=== PATIENT | female | born 1965 | race African-American/Black ===

== ENCOUNTER 2017-06-12 12:35 | Emergency (ER) | payer MEDICAID, OTHER ==
[~2017-06-12] VITALS: Ht 162.6 cm; Wt 128.0 kg
[~2017-06-12 12:35] MED LIST: BENA40TA3; HYDR12.518; METH5TAB68
[2017-06-12 17:10] LABS: CLARITY URINE CLEAR (CLEAR); COLOR URINE YELLOW (YELLOW); GLUCOSE URINE NEGATIVE (NEGATIVE); KETONES URINE NEGATIVE (NEGATIVE); LEUKOCYTE ESTERASE URINE TRACE (NEGATIVE); NITRITE URINE NEGATIVE (NEGATIVE); OCCULT BLOOD URINE NEGATIVE (NEGATIVE); PH URINE 7.5 (4.5-8.0); PROTEIN URINE NEGATIVE (NEGATIVE); SPECIFIC GRAVITY URINE 1.019 (1.005-1.030)
[2017-06-12] MEDS ORDERED: KETOROLAC 60MG/2ML VIAL IM ONE (17:30)
[2017-06-12 17:49] LABS: BASOPHILS % 0.7 % (0.0-2.0); EOSINOPHILS % 3.3 % (0.0-5.0); HEMATOCRIT. 37.7 % (36.0-48.0); LYMPHOCYTES % 45.3 % (20.0-50.0); MEAN CORPUSCULAR HEMOGLOBIN 25.5 pg (28.0-32.0); MEAN CORPUSCULAR VOLUME 79.9 fL (81.0-99.0); MEAN PLATELET VOLUME 10.5 fl (7.4-10.4); MONOCYTES % 10.9 % (2.0-8.0); NEUTROPHILS % 39.8 % (40.0-76.0); PLATELET 164 x1000/uL (130-400); RED BLOOD CELL COUNT 4.72 mill/uL (4.2-5.4); RED CELL DISTRIBUTION WIDTH 16.1 % (11.6-14.6)
[2017-06-12 21:05] VITALS: BP 148/87
== END 2017-06-12 21:09 | disposition home or self-care (01) ==
LOC: ER 16:01
DX: D25.9 Leiomyoma of uterus, unspecified (principal); R10.2 Pelvic and perineal pain; I10 Essential (primary) hypertension; Z90.710 Acquired absence of both cervix and uterus
CPT/HCPCS: 36415; 76830; 76856; 81001; 81025; 85025; 96372; 99285; J1885; Z7610

== ENCOUNTER 2018-11-24 20:31 | Inpatient (IN) | payer OTHER ==
[~2018-11-24] VITALS: Ht 162.6 cm; Wt 128.8 kg
[~2018-11-24 20:31] MED LIST changes: -BENA40TA3; +BENA40TA9
[2018-11-25] MEDS ORDERED: PREDNISONE 20MG TABLET PO STA (02:07)
[2018-11-25] MEDS ORDERED: ALBUTEROL (0.083%) 2.5MG/3ML NEB HHN STA ×2 (02:07→04:23)
[2018-11-25] MEDS ORDERED: IPRATROPIUM BROMIDE (0.02%) 0.5MG/2.5ML NEB HHN STA ×2 (02:07→04:23)
[2018-11-25 02:58] LABS: CHLORIDE 109 mEq/L (98-107)
[2018-11-25 03:18] LABS: BASOPHILS % 0.5 % (0.0-2.0); HEMATOCRIT. 40.1 % (36.0-48.0); HEMOGLOBIN. 12.6 g/dL (12.0-16.0); LYMPHOCYTES % 35.9 % (20.0-50.0); MEAN CORPUSCULAR HEMOGLOBIN 25.6 pg (28.0-32.0); MEAN CORPUSCULAR VOLUME 81.5 fL (81.0-99.0); MEAN PLATELET VOLUME 10.9 fl (7.4-10.4); MONOCYTES % 12.7 % (2.0-8.0); NEUTROPHILS % 38.9 % (40.0-76.0); PLATELET 172 x1000/uL (130-400); RED BLOOD CELL COUNT 4.92 mill/uL (4.2-5.4); RED CELL DISTRIBUTION WIDTH 15.6 % (11.6-14.6)
[2018-11-25] MEDS: HYDROCODONE/ACETAMINOPHEN 5/325MG TABLET PO PRN ×2 (15:23→23:26)
[2018-11-25] MEDS ORDERED: IOHEXOL-350 100 ML BOTTLE ONE (17:17)
[2018-11-25 21:30] VITALS: BP 177/88
[2018-11-25 22:10] VITALS: BP 177/88
[2018-11-25] MEDS: LOSARTAN POTASSIUM 50 MG TABLET PO SCH (23:27)
[2018-11-26] VITALS: BP 157/90
[2018-11-26 04:00] VITALS: BP 154/79
[2018-11-26] MEDS: HYDROCODONE/ACETAMINOPHEN 5/325MG TABLET PO PRN ×2 (06:17→17:14)
[2018-11-26] MEDS ORDERED: PANTOPRAZOLE 40MG DR TABLET PO SCH (07:40)
[2018-11-26 08:00] VITALS: BP 150/78
[2018-11-26] MEDS: LOSARTAN POTASSIUM 50 MG TABLET PO SCH (08:32)
[2018-11-26 12:00] VITALS: BP 165/82
[2018-11-26 12:33] LABS: HEMOGLOBIN 12.6 g/dL (12.0-16.0); MEAN CORPUSCULAR HEMOGLOBIN 25.5 pg (28.0-32.0); MEAN CORPUSCULAR VOLUME 80.8 fL (81.0-99.0); PLATELET 176 x1000/uL (130-400); RED BLOOD CELL COUNT 4.94 mill/uL (4.2-5.4); RED CELL DISTRIBUTION WIDTH 15.6 % (11.6-14.6)
[2018-11-26 12:35] LABS: BG BASE EXCESS 1.2 mmol/L (-2.0-2.0); BG CARBOXYHEMOGLOBIN 0.7 % (0.5-1.5); BG DEOXYHEMOGLOBIN 7.2 % (0.0-5.0); BG FRACTION INSPIRED OXYGEN 21; BG HCO3 ACT 25.6 mmol/L (22.0-26.0); BG METHEMOGLOBIN 0.3 % (0.0-1.5); BG OXYGEN SATURATION 92.7 % (92.0-98.5); BG OXYHEMOGLOBIN 91.8 % (94.0-97.0); BG PCO2 39.9 mmHg (35.0-45.0); BG PH 7.425 (7.350-7.450); BG PO2 64.5 mmHg (75.0-100.0); BG SAMPLE SITE RIGHT RADIAL; BG TOTAL HEMOGLOBIN 13.4 g/dL (12.0-18.0); BG VENT MODE ROOM AIR
[2018-11-26 12:52] LABS: CHLORIDE 105 mEq/L (98-107)
[2018-11-26] MEDS: LORATADINE 10MG TABLET PO SCH (13:36)
[2018-11-26] MEDS: METHYLPREDNISOLONE SOD SUCC 40 MG/ML VIAL IV SCH ×2 (13:36→21:01)
[2018-11-26] MEDS: DILTIAZEM HCL 30MG TABLET PO SCH ×2 (13:38→21:01)
[2018-11-26] MEDS: LEVOFLOXACIN 500MG PREMIX 100 ML IV SCH (15:22)
[2018-11-26 16:00] VITALS: BP 187/91
[2018-11-26] MEDS ORDERED: CLONIDINE 0.1MG TABLET PO PRN (17:45)
[2018-11-26] MEDS ORDERED: DIPHENHYDRAMINE 25MG CAPSULE PO PRN (17:45)
[2018-11-26 20:00] VITALS: BP 162/84
[2018-11-26] MEDS: FAMOTIDINE 20MG/2ML VIAL IV SCH (20:38)
[2018-11-26] MEDS: IPRATROPIUM/ALBUTEROL 0.5-3(2.5)MG/3ML NEB HHN SCH (20:44)
[2018-11-26] MEDS ORDERED: MONTELUKAST SODIUM 10MG TABLET PO SCH (21:00)
[2018-11-27] VITALS: BP 139/82
[2018-11-27] MEDS: IPRATROPIUM/ALBUTEROL 0.5-3(2.5)MG/3ML NEB HHN SCH ×4 (00:35→12:59)
[2018-11-27 04:00] VITALS: BP 148/91
[2018-11-27] MEDS: METHYLPREDNISOLONE SOD SUCC 40 MG/ML VIAL IV SCH ×2 (05:11→13:54)
[2018-11-27] MEDS: DILTIAZEM HCL 30MG TABLET PO SCH ×2 (05:11→14:48)
[2018-11-27 06:45] LABS: CHLORIDE 107 mEq/L (98-107)
[2018-11-27 07:36] LABS: HEMOGLOBIN 13.3 g/dL (12.0-16.0); MEAN CORPUSCULAR HEMOGLOBIN 25.9 pg (28.0-32.0); MEAN CORPUSCULAR VOLUME 81.7 fL (81.0-99.0); PLATELET 180 x1000/uL (130-400); RED BLOOD CELL COUNT 5.14 mill/uL (4.2-5.4)
[2018-11-27 08:00] VITALS: BP 149/76
[2018-11-27] MEDS: HYDROCODONE/ACETAMINOPHEN 5/325MG TABLET PO PRN (08:36)
[2018-11-27] MEDS: LOSARTAN POTASSIUM 50 MG TABLET PO SCH (08:36)
[2018-11-27] MEDS: FAMOTIDINE 20MG/2ML VIAL IV SCH (08:36)
[2018-11-27] MEDS: LORATADINE 10MG TABLET PO SCH (08:36)
[2018-11-27 12:00] VITALS: BP 158/89
[2018-11-27] MEDS: LEVOFLOXACIN 500MG PREMIX 100 ML IV SCH (13:55)
[2018-11-27 14:24] VITALS: BP 155/89
== END 2018-11-27 17:57 | DRG 189 ==
LOC: ER 21:20 → EDBEDREQTM 11-25 04:51 → 7WST 11-25 05:03 → EDBEDREQ 11-25 05:08 → EDBEDREQTM 11-25 05:08 → ENRESERV 11-25 20:30 → EDBEDREQ 11-25 21:38
PROVIDERS: ADMIT Internal Medicine; ATTEND Internal Medicine
DX: J96.20 Acute and chronic respiratory failure, unspecified whether with hypoxia or hypercapnia (principal); J45.901 Unspecified asthma with (acute) exacerbation; J44.1 Chronic obstructive pulmonary disease with (acute) exacerbation; Z68.42 Body mass index [BMI] 45.0-49.9, adult; I10 Essential (primary) hypertension; E66.9 Obesity, unspecified; D72.1 Eosinophilia; Z87.891 Personal history of nicotine dependence; Z91.19 Patient's noncompliance with other medical treatment and regimen; Z98.891 History of uterine scar from previous surgery; Z79.899 Other long term (current) drug therapy
CPT/HCPCS: 36415; 36600; 71045; 71275; 80048; 82375; 82805; 83036; 83880; 84484; 85027; 87804; 93005; 93306; 93970; 94640; 97162; 99284; 99285; J1956; J2920; J3490; J7050; J7512; J7611; J7620; Q0163; Q9967